=== PATIENT | male | born 1945 | race Caucasian/White ===

== ENCOUNTER 2018-04-06 17:48 | Inpatient (IN) | payer MEDICARE ==
[2018-04-06] MEDS ORDERED: Diabetic Tussin 200 MG/10 ML UDCUP PO PRN (21:51)
[2018-04-06] MEDS ORDERED: hydrALAZINE 25 MG TAB PO SCH (23:45)
[2018-04-06] MEDS ORDERED: Carvedilol 3.125 MG TAB PO SCH (23:45)
[2018-04-06] MEDS ORDERED: Amiodarone 200 MG TAB PO SCH (23:45)
[2018-04-06] MEDS ORDERED: Amoxicillin/Potassium Clav 875 MG TAB PO SCH (23:45)
[2018-04-06] MEDS ORDERED: Isosorbide Dinitrate 20 MG TAB PO SCH (23:45)
[2018-04-06] MEDS ORDERED: Atorvastatin Calcium 40 MG TAB PO SCH (23:45)
[2018-04-07] MEDS ORDERED: Amoxicillin/Potassium Clav 875 MG TAB ONE (00:51)
[2018-04-07 08:24] LABS: #Basophils 0.2 thou/uL (0.0-0.2); #Eosinphils 0.6 thou/uL (0.0-0.7); #Lymphocytes 2.1 thou/uL (1.20-3.40); #Neutrophils 7.2 thou/uL (1.40-6.50); %Basophils 1.4 % (0.0-1.0); %Eosinophils 5.3 % (0.0-10.0); %Lymphocytes 19.2 % (21.0-51.0); %Monocytes 8.8 % (0.0-10.0); %Neutrophils 65.3 % (42.0-75.0); Hemoglobin 9.8 g/dL (14.0-18.0); Mean Corpuscular HGB CONC 34.5 g/dL (32.0-36.0); Mean Corpuscular Hemoglobin 28.9 pg (27.0-31.0); Mean Corpuscular Volume 83.6 fl (80.0-94.0); Mean Platelet Volume 8.2 fL (7.4-10.4); Platelet Count 204 thou/uL (130-400); RBC Distribution Width 13.8 % (11.5-14.5)
[2018-04-07 08:44] LABS: Anion Gap 14 mmol/L (10-20); BUN (Urea Nitrogen) 18 mg/dL (8.4-25.7); Calc. Creatinine Clearance 84 mL/min (70-130); Calcium 8.1 mg/dL (7.8-10.44); Carbon Dioxide 22 mmol/L (23-31); Chloride 111 mmol/L (98-107); Estimated GFR-MDRD 58; Glucose 128 mg/dL (83-110); Sodium 143 mmol/L (136-145)
[2018-04-07] MEDS ORDERED: Vit A,C & E/Lutein/Minerals Tablet PO SCH ×2 (09:00)
[2018-04-07] MEDS: Amoxicillin/Potassium Clav 875 MG TAB PO SCH ×2 (09:11→21:12)
[2018-04-07] MEDS: Potassium Chloride 20 MEQ TAB PO SCH (09:14)
[2018-04-07] MEDS: metFORMIN 500 MG TAB PO SCH ×2 (09:15→19:14)
[2018-04-07] MEDS: Amiodarone 200 MG TAB PO SCH ×2 (09:17→21:11)
[2018-04-07] MEDS: Aspirin 325 mg Enteric Coated Tablet PO SCH (09:18)
[2018-04-07] MEDS: Carvedilol 3.125 MG TAB PO SCH ×3 (09:19→21:12)
[2018-04-07] MEDS: Clopidogrel Bisulfate 75 MG TAB PO SCH (09:21)
[2018-04-07] MEDS: hydrALAZINE 25 MG TAB PO SCH ×3 (09:23→21:12)
[2018-04-07] MEDS: Isosorbide Dinitrate 20 MG TAB PO SCH ×3 (09:27→21:19)
[2018-04-07] MEDS: Losartan Potassium 50 MG TAB PO SCH (09:34)
[2018-04-07] MEDS: Atorvastatin Calcium 40 MG TAB PO SCH (21:12)
[2018-04-07] MEDS: Latanoprost 0.005% Ophth Soln 2.5 ml Bottle L EYE SCH (21:23)
[2018-04-08] MEDS ORDERED: Vit A,C & E/Lutein/Minerals Tablet PO SCH (09:00)
[2018-04-08] MEDS: Potassium Chloride 20 MEQ TAB PO SCH (09:14)
[2018-04-08] MEDS: metFORMIN 500 MG TAB PO SCH ×2 (09:14→16:56)
[2018-04-08] MEDS: Amiodarone 200 MG TAB PO SCH ×2 (09:15→21:23)
[2018-04-08] MEDS: Clopidogrel Bisulfate 75 MG TAB PO SCH (09:15)
[2018-04-08] MEDS: Isosorbide Dinitrate 20 MG TAB PO SCH ×3 (09:16→21:23)
[2018-04-08] MEDS: Aspirin 325 mg Enteric Coated Tablet PO SCH (09:20)
[2018-04-08] MEDS: Amoxicillin/Potassium Clav 875 MG TAB PO SCH ×2 (09:21→21:21)
[2018-04-08] MEDS: Carvedilol 3.125 MG TAB PO SCH ×3 (09:21→21:23)
[2018-04-08] MEDS: hydrALAZINE 25 MG TAB PO SCH ×3 (09:22→21:22)
[2018-04-08] MEDS: Losartan Potassium 50 MG TAB PO SCH ×2 (09:24→09:26)
[2018-04-08] MEDS: Latanoprost 0.005% Ophth Soln 2.5 ml Bottle L EYE SCH (21:19)
[2018-04-08] MEDS: PRESERVISION AREDS 2 FORMULA PO SCH (21:20)
[2018-04-08] MEDS: Atorvastatin Calcium 40 MG TAB PO SCH (21:21)
--- NOTE | 2018-04-09 00:22 | HP ---
DATE OF ADMISSION: 04/06/2018 PRIMARY CARE PHYSICIAN: Dr. Carmen Gauthier and [facility] [place] CHIEF COMPLAINT: Extended stay at [facility] for skilled rehabilitation after outpatient hospital cardiac arrest. HISTORY OF PRESENT ILLNESS: Mr. Huerta is a 72-year-old male with coronary artery disease, diabetes mellitus, hypertension, and hyperlipidemia. He was playing in a casino on a cruise on to [place] when he collapsed. He underwent CPR for 15 minutes, received several cardiac shocks with intubation. He was successfully resuscitated. He was then transferred to [facility] and found to have an ST elevation myocardial infarction and pneumothorax. He underwent PCI to his left anterior descending artery and chest tube placement. He was then transferred to [facility] on 03/31/2018, he was intubated and sedated. Upon arrival, he was in atrial fibrillation with RVR, hypotensive, septic with acute renal failure. He also had some electrolyte derangements. He was subsequently started on amiodarone drip followed by digoxin drip. He was empirically treated with vancomycin and Zosyn for sepsis secondary to pneumonia. His echocardiogram showed EF of about 30%-35% with diastolic dysfunction, presence of mild to moderate mitral regurgitation and a sclerotic aortic valve with mild tricuspid regurgitation. Dr. Chadwick assisted with stabilizing his pulmonary status. He was given breathing treatments for his persistent cough after extubation likely secondary to underlying chronic obstructive pulmonary disease due to long history of smoking. Dr. Willson assisted with improving his cardiac status. His condition gradually improved and was stable for discharge to our facility. Prior to his transfer, he was placed on Zoll LifeVest. He was also started with physical therapy. He appeared very weak, fatigued with poor gait according to our records hence recommendations for continued rehab before returning home. The patient is a resident of [place] hence this admission. Today, he is complaining of poor appetite, shortness of breath with dry to semi productive cough, he is also complaining of pain on his right side, has bruising on his thighs and feet, possibly from thigh compression stockings that he was wearing at a [facility]. He would like to continue receiving breathing treatments. Per record , he walked about 500 plus feet today using his rolling walker. He is in good spirit. PAST MEDICAL HISTORY: 1. Out of hospital cardiac arrest secondary to ST elevation myocardial infarction. 2. History of atrial fibrillation with rapid ventricular response. 3. History of pneumothorax status post chest tube placement. 4. History of acute respiratory failure with underlying chronic obstructive pulmonary disease. 5. History of sepsis. 6. Hypertension. 7. Diabetes mellitus. 8. Hyperlipidemia. 9. Former smoker. PAST SURGICAL HISTORY: 1. Recent PCI with stent placement. 2. Chest tube placement. MEDICATIONS: 1. Amiodarone 400 mg b.i.d. 2. Augmentin 875 mg b.i.d. 3. Aspirin 325 mg daily. 4. Lipitor 40 mg at bedtime. 5. Coreg 3.125 mg b.i.d. 6. Plavix 75 mg daily. 7. Robitussin 100 mg every 4 hours p.r.n. for cough. 8. Hydralazine 25 mg t.i.d. 9. Metformin 500 mg b.i.d. 10. Potassium chloride 20 mEq daily. FAMILY HISTORY: Noncontributory. SOCIAL HISTORY: Former smoker, but admit that to smoke gain more than 30+ pack years. Denies alcohol or drug use. He is a former teacher in [employer]. REVIEW OF SYSTEMS: General: Positive for fatigue. Positive for decreased appetite. Positive for weakness. HEENT: Positive for bruising on right forehead secondary to recent fall. Positive for blurred vision. Positive for dry mouth. Negative for sore throat. Respiratory: Positive for dry to semi productive cough, positive for shortness of breath and positive for wheezing. Cardiovascular: Negative for chest pain. Negative for palpitation. Currently wearing a LifeVest. Abdomen: Positive for abdominal distention. Positive for constipation. Negative for abdominal pain. Musculoskeletal: Positive for right hip/buttock pain. Positive for bruising on both lower legs and feet. Positive for mild edema. Neurologic: Negative for seizures. Positive for memory loss. PHYSICAL EXAMINATION: VITAL SIGNS: Blood pressure of 115/57, temperature of 98.5, pulse of 62, respiratory rate of 22, O2 sat 95% on room air. GENERAL: The patient is alert, oriented x3, slightly in respiratory distress, slightly tachypneic. HEENT: Normocephalic. Positive for bruising on the right supraorbital area. Negative for tonsillopharyngeal congestion. NECK: Supple. Negative for lymphadenopathy. CHEST AND LUNGS: Positive for faint wheezing on both upper lung lopez, negative for crackles, negative for rales. Positive for use of accessory muscles. ABDOMEN: Distended, soft, normoactive bowel sounds. Negative for CVA tenderness. EXTREMITIES: Positive for grade 1 edema. Positive for bruising on proximal anterior legs and anterior feet. Negative for clubbing. NEUROLOGIC: Negative for motor or sensory deficits. PSYCHIATRIC: Appropriate affect and demeanor. LABORATORY AND X-RAY FINDINGS: 1. CBC: WBC of 11, hemoglobin of 9.8, hematocrit of 28.4, lymphocytes of 19.2 , neutrophils of 7.2. 2. BMP: Sodium of 143, potassium of 4, chloride of 111, carbon dioxide of 22, glucose of 128. ASSESSMENT: 1. Out of hospital cardiac arrest on LifeVest. 2. ST elevation myocardial infarction, status post percutaneous coronary intervention and stent placement on left anterior descending. 3. Atrial fibrillation with rapid ventricular response, resolved. 4. Pneumothorax status post chest tube placement, discontinued. 5. History of respiratory failure with underlying chronic obstructive pulmonary disease. 6. Physical deconditioning. 7. Hypertension complicated by hypotension, improved. 8. Acute kidney injury, resolved. 9. Diabetes mellitus. 10. Former smoker. 11. Hyperlipidemia. 12. Pneumonia with sepsis, improving. PLAN: 1. Admitted for [facility] with physical therapy. 2. Prognosis is fair due to his multiple comorbid conditions. 3. Continue oral antibiotics for treatment of pneumonia. 4. Continue LifeVest. 5. Continue physical therapy and occupational therapy. Goal is to improve mobility, endurance, gait, strength, and transfer ability, patient desires to go home. Continue current medication. Glucose monitoring q.a.c. and at bedtime. 6. Deep venous thrombosis prophylaxis with sequential compression devices. Restart nebulization for wheezing and persistent cough. 7. Serial monitoring of his hemoglobin secondary to nutritional anemia. 8. Case management to assist with discharge planning. DISPOSITION: Anticipated length of stay is about 2-4 weeks. Discharge to home with or without home health. Transfer of care to patient's PCP, Dr. Gauthier on Thursday. SUSHMA
[2018-04-09] MEDS: metFORMIN 500 MG TAB PO SCH ×2 (08:41→17:32)
[2018-04-09] MEDS: Potassium Chloride 20 MEQ TAB PO SCH (08:41)
[2018-04-09] MEDS: Amiodarone 200 MG TAB PO SCH ×2 (08:42→21:13)
[2018-04-09] MEDS: Isosorbide Dinitrate 20 MG TAB PO SCH ×3 (08:42→21:14)
[2018-04-09] MEDS: Amoxicillin/Potassium Clav 875 MG TAB PO SCH ×2 (08:43→21:15)
[2018-04-09] MEDS: hydrALAZINE 25 MG TAB PO SCH ×3 (08:43→21:07)
[2018-04-09] MEDS: Aspirin 325 mg Enteric Coated Tablet PO SCH (08:43)
[2018-04-09] MEDS: Carvedilol 3.125 MG TAB PO SCH ×3 (08:45→21:13)
[2018-04-09] MEDS: Clopidogrel Bisulfate 75 MG TAB PO SCH (08:45)
[2018-04-09] MEDS: PRESERVISION AREDS 2 FORMULA PO SCH ×2 (08:46→21:15)
[2018-04-09] MEDS ORDERED: Amoxicillin/Potassium Clav 875 MG TAB ONE (09:46)
[2018-04-09] MEDS: Atorvastatin Calcium 40 MG TAB PO SCH (21:13)
[2018-04-09] MEDS: Latanoprost 0.005% Ophth Soln 2.5 ml Bottle L EYE SCH (21:14)
[2018-04-10] MEDS: Carvedilol 3.125 MG TAB PO SCH ×3 (08:34→21:56)
[2018-04-10] MEDS: metFORMIN 500 MG TAB PO SCH ×2 (08:34→17:13)
[2018-04-10] MEDS: Isosorbide Dinitrate 20 MG TAB PO SCH ×3 (08:35→21:49)
[2018-04-10] MEDS: Aspirin 325 mg Enteric Coated Tablet PO SCH (08:35)
[2018-04-10] MEDS: Amiodarone 200 MG TAB PO SCH ×2 (08:35→21:50)
[2018-04-10] MEDS: Potassium Chloride 20 MEQ TAB PO SCH (08:37)
[2018-04-10] MEDS: hydrALAZINE 25 MG TAB PO SCH ×3 (08:37→21:52)
[2018-04-10] MEDS: Clopidogrel Bisulfate 75 MG TAB PO SCH (08:37)
[2018-04-10] MEDS: Amoxicillin/Potassium Clav 875 MG TAB PO SCH ×2 (08:38→21:49)
[2018-04-10] MEDS: PRESERVISION AREDS 2 FORMULA PO SCH ×2 (08:39→22:01)
[2018-04-10] MEDS: Atorvastatin Calcium 40 MG TAB PO SCH (21:50)
[2018-04-10] MEDS: Latanoprost 0.005% Ophth Soln 2.5 ml Bottle L EYE SCH (21:58)
[2018-04-10] MEDS: diphenhydrAMINE 25 MG CAP PO PRN (22:32)
[2018-04-11] MEDS: metFORMIN 500 MG TAB PO SCH ×2 (09:23→17:29)
[2018-04-11] MEDS: Clopidogrel Bisulfate 75 MG TAB PO SCH (09:24)
[2018-04-11] MEDS: Potassium Chloride 20 MEQ TAB PO SCH (09:24)
[2018-04-11] MEDS: Amiodarone 200 MG TAB PO SCH ×2 (09:24→20:46)
[2018-04-11] MEDS: Aspirin 325 mg Enteric Coated Tablet PO SCH (09:24)
[2018-04-11] MEDS: hydrALAZINE 25 MG TAB PO SCH ×3 (09:24→20:47)
[2018-04-11] MEDS: Carvedilol 3.125 MG TAB PO SCH ×3 (09:26→20:48)
[2018-04-11] MEDS: Isosorbide Dinitrate 20 MG TAB PO SCH ×3 (09:26→20:46)
[2018-04-11] MEDS: Amoxicillin/Potassium Clav 875 MG TAB PO SCH ×2 (09:29→20:49)
[2018-04-11] MEDS: PRESERVISION AREDS 2 FORMULA PO SCH ×2 (09:30→20:42)
[2018-04-11 11:18] VITALS: BMI 31.4
[2018-04-11] MEDS: Latanoprost 0.005% Ophth Soln 2.5 ml Bottle L EYE SCH (20:44)
[2018-04-11] MEDS: Atorvastatin Calcium 40 MG TAB PO SCH (20:45)
[2018-04-11] MEDS: diphenhydrAMINE 25 MG CAP PO PRN (21:59)
[2018-04-12 05:39] LABS: White Blood Cell (WBC) Count 7.3 thou/uL (4.8-10.8)
[2018-04-12 05:40] LABS: %Lymphocytes 29.9 % (21.0-51.0); %Neutrophils 47.4 % (42.0-75.0); Hemoglobin 9.4 g/dL (14.0-18.0); Mean Corpuscular HGB CONC 35.1 g/dL (32.0-36.0); Mean Corpuscular Hemoglobin 29.1 pg (27.0-31.0); Mean Corpuscular Volume 82.9 fL (80.0-94.0); Mean Platelet Volume 8.8 fL (7.4-10.4); Platelet Count 176 thou/uL (130-400); RBC Distribution Width 14.8 % (11.5-14.5); Red Blood Cell (RBC) Count 3.24 mill/uL (4.70-6.10)
[2018-04-12 05:41] LABS: #Basophils 0.1 thou/uL (0.0-0.2); #Eosinphils 0.8 thou/uL (0.0-0.7); #Lymphocytes 2.2 thou/uL (1.20-3.40); #Monocytes 0.7 thou/uL (0.11-0.59); #Neutrophils 3.5 thou/uL (1.40-6.50); %Basophils 1.2 % (0.0-1.0); %Eosinophils 11.6 % (0.0-10.0); %Monocytes 9.9 % (0.0-10.0)
[2018-04-12 05:44] LABS: Anion Gap 14 mmol/L (10-20); BUN (Urea Nitrogen) 14 mg/dL (8.4-25.7); Calc. Creatinine Clearance 88 mL/min (70-130); Carbon Dioxide 20 mmol/L (23-31); Chloride 110 mmol/L (98-107); Estimated GFR-MDRD 63; Glucose 103 mg/dL (83-110); Potassium 3.7 mmol/L (3.5-5.1); Sodium 140 mmol/L (136-145)
[2018-04-12] MEDS: Amiodarone 200 MG TAB PO SCH ×2 (09:23→21:24)
[2018-04-12] MEDS: hydrALAZINE 25 MG TAB PO SCH ×3 (09:23→21:26)
[2018-04-12] MEDS: metFORMIN 500 MG TAB PO SCH ×2 (09:23→17:28)
[2018-04-12] MEDS: Potassium Chloride 20 MEQ TAB PO SCH (09:23)
[2018-04-12] MEDS: Aspirin 325 mg Enteric Coated Tablet PO SCH (09:23)
[2018-04-12] MEDS: Isosorbide Dinitrate 20 MG TAB PO SCH ×3 (09:24→21:25)
[2018-04-12] MEDS: Carvedilol 3.125 MG TAB PO SCH ×3 (09:24→21:23)
[2018-04-12] MEDS: Clopidogrel Bisulfate 75 MG TAB PO SCH (09:24)
[2018-04-12] MEDS: PRESERVISION AREDS 2 FORMULA PO SCH ×2 (09:33→21:32)
[2018-04-12] MEDS: Amoxicillin/Potassium Clav 875 MG TAB PO SCH ×2 (10:58→21:31)
[2018-04-12] MEDS: Atorvastatin Calcium 40 MG TAB PO SCH (21:24)
[2018-04-12] MEDS: Latanoprost 0.005% Ophth Soln 2.5 ml Bottle L EYE SCH (21:31)
[2018-04-12] MEDS: diphenhydrAMINE 25 MG CAP PO PRN (22:28)
[2018-04-13] MEDS: metFORMIN 500 MG TAB PO SCH ×2 (09:20→17:08)
[2018-04-13] MEDS: Isosorbide Dinitrate 20 MG TAB PO SCH ×2 (09:20→14:47)
[2018-04-13] MEDS: hydrALAZINE 25 MG TAB PO SCH ×2 (09:21→14:47)
[2018-04-13] MEDS: Aspirin 325 mg Enteric Coated Tablet PO SCH (09:22)
[2018-04-13] MEDS: Carvedilol 3.125 MG TAB PO SCH ×2 (09:22→14:48)
[2018-04-13] MEDS: Clopidogrel Bisulfate 75 MG TAB PO SCH (09:22)
[2018-04-13] MEDS: Potassium Chloride 20 MEQ TAB PO SCH (09:22)
[2018-04-13] MEDS: Amiodarone 200 MG TAB PO SCH (09:22)
[2018-04-13] MEDS: Amoxicillin/Potassium Clav 875 MG TAB PO SCH (09:23)
[2018-04-13] MEDS: PRESERVISION AREDS 2 FORMULA PO SCH (10:53)
[2018-04-13 18:52] VITALS: BP 106/56; TEMP 98.5
== END 2018-04-13 19:15 | disposition home or self-care (01) | DRG 947 ==
LOC: BURMED 19:21
PROVIDERS: ADMIT Family Medicine; ATTEND Family Medicine
DX: R53.1 Weakness (principal); I21.3 ST elevation (STEMI) myocardial infarction of unspecified site; J18.9 Pneumonia, unspecified organism; I48.91 Unspecified atrial fibrillation; J44.9 Chronic obstructive pulmonary disease, unspecified; I10 Essential (primary) hypertension; I25.10 Atherosclerotic heart disease of native coronary artery without angina pectoris; E11.9 Type 2 diabetes mellitus without complications; E78.5 Hyperlipidemia, unspecified; D53.9 Nutritional anemia, unspecified; R53.83 Other fatigue; R06.02 Shortness of breath; R06.2 Wheezing; K59.00 Constipation, unspecified; R26.9 Unspecified abnormalities of gait and mobility; Z86.74 Personal history of sudden cardiac arrest; Z87.891 Personal history of nicotine dependence; Z95.5 Presence of coronary angioplasty implant and graft; Z79.84 Long term (current) use of oral hypoglycemic drugs; Z79.02 Long term (current) use of antithrombotics/antiplatelets; Z79.82 Long term (current) use of aspirin; Z79.899 Other long term (current) drug therapy
CPT/HCPCS: 36415; 36416; 80048; 84134; 85025; G8978-GP-CK; G8979-GP-CI; G8987-GO-CK; G8988-GO-CI; J7620

== ENCOUNTER 2019-07-29 20:19 | Emergency (ER) | payer MEDICARE ==
[2019-07-29 20:46] LABS: #Basophils 0.2 thou/uL (0.0-0.2); #Eosinphils 0.3 thou/uL (0.0-0.7); #Lymphocytes 3.8 thou/uL (1.20-3.40); #Neutrophils 7.5 thou/uL (1.40-6.50); %Basophils 1.4 % (0.0-1.0); %Eosinophils 2.5 % (0.0-10.0); %Lymphocytes 29.9 % (21.0-51.0); %Monocytes 7.4 % (0.0-10.0); %Neutrophils 58.7 % (42.0-75.0); Hemoglobin 10.9 g/dL (14.0-18.0); Mean Corpuscular HGB CONC 32.5 g/dL (32.0-36.0); Mean Corpuscular Hemoglobin 29.1 pg (27.0-31.0); Mean Corpuscular Volume 89.5 fL (78.0-98.0); Mean Platelet Volume 8.4 fL (7.4-10.4); Platelet Count 196 thou/uL (130-400); RBC Distribution Width 13.9 % (11.5-14.5); Red Blood Cell (RBC) Count 3.73 mill/uL (4.70-6.10); White Blood Cell (WBC) Count 12.7 thou/uL (4.8-10.8)
[2019-07-29 21:04] LABS: ALT (SGPT) 19 U/L (8-55); AST (SGOT) 13 U/L (5-34); Albumin 3.6 g/dL (3.4-4.8); Alkaline Phosphatase 68 U/L (40-110); Anion Gap 20 mmol/L (10-20); BUN (Urea Nitrogen) 69 mg/dL (8.4-25.7); Bilirubin, Total 0.4 mg/dL (0.2-1.2); Calc. Creatinine Clearance 0 mL/min (70-130); Calcium 8.7 mg/dL (7.8-10.44); Carbon Dioxide 19 mmol/L (23-31); Chloride 108 mmol/L (98-107); Estimated GFR-MDRD 45; Globulin 2.5 g/dL (2.4-3.5); Glucose 260 mg/dL (83-110); Lipase 36 U/L (8-78); Potassium 5.1 mmol/L (3.5-5.1); Protein, Total 6.1 g/dL (5.8-8.1); Sodium 142 mmol/L (136-145)
--- NOTE | 2019-07-29 21:16 | RAD ---
PORTABLE CHEST: 07/29/19 An AP portable film at 2053 is compared with a 04/01/18 study. Mild cardiomegaly is no worse than previously. There is no vascular congestion, edema, or pleural eff usion. The lungs are clear. A cardiac pacer has been placed since the prior examination. IMPRESSION: Mild cardiomegaly but no acute findings. POS: HOME
[2019-07-29 22:06] LABS: Bilirubin Negative (Negative); Blood, Urine Negative (Negative); Clarity Clear (Clear); Glucose, Urine (Dipstick) Negative (Negative); Leukocyte Trace (Negative); Nitrite Negative (Negative); Protein, Urine (Dipstick) Negative (Neg-Trace); Urobilinogen 0.2 mg/dL (Less than 2)
[2019-07-29 22:10] LABS: RBC/HPF 0-3 HPF (0-3); Squamous Epithelial 0-3 HPF (0-3)
[2019-07-29 22:11] LABS: Bacteria/HPF Rare-Few HPF (None Seen)
[2019-07-29 22:13] LABS: Red Blood Cell Cast 0-3 LPF (None Seen)
[2019-07-29] MEDS ORDERED: cefTRIAXone\\ROCEPHIN 1 GM VIAL ONE (22:18)
== END 2019-07-29 22:57 | disposition short-term general hospital (02) ==
LOC: BURERS 20:19
DX: E86.0 Dehydration (principal); R53.1 Weakness; R55 Syncope and collapse; I25.2 Old myocardial infarction; E11.9 Type 2 diabetes mellitus without complications; I10 Essential (primary) hypertension; Z79.84 Long term (current) use of oral hypoglycemic drugs; Z79.82 Long term (current) use of aspirin; Z79.899 Other long term (current) drug therapy
CPT/HCPCS: 36415; 71045; 80053; 81003; 81015; 83605; 83690; 83880; 84484; 85025; 85379; 87040; 87086; 93005; 96361; 96374; J0696

== ENCOUNTER 2019-09-28 09:48 | Outpatient (CLI) | payer MEDICARE ==
--- NOTE | 2019-09-28 18:36 | RAD ---
ABDOMEN 09/28/19 Supine and erect films show no free air beneath the diaphragm. Large air fluid level is seen in the u pper abdomen that I am presuming to be in stomach, though it is a little more midline than usual. The colon does not appear dilated and there is a moderate amount of fecal material present. A collection of calcifications is suggested in the right upper quadrant and are presumably gallstones. An old fr acture of the right 9th rib is suggested. The lung bases are clear. IMPRESSION: 1. No opaque foreign body seen. 2. Prominent air fluid level in the stomach. 3. Right upper quadrant calcifications, presumably multiple tiny gallstones. 4. Mild constipation. 5. Not mentioned above but potentially present are some left upper quadrant calcifications of un certain etiology. They could be in the pancreas or in blood vessels. POS: HOME
== END 2019-09-28 09:49 | disposition home or self-care (01) ==
LOC: BURRAD 09:48
PROVIDERS: ATTEND Internal Medicine
DX: T18.2XXA Foreign body in stomach, initial encounter (principal); K59.00 Constipation, unspecified; R93.5 Abnormal findings on diagnostic imaging of other abdominal regions, including retroperitoneum
CPT/HCPCS: 74019

== ENCOUNTER 2020-06-01 16:15 | Emergency (ER) | payer MEDICARE | END 2020-06-01 16:34 | disposition home or self-care (01) | LOC: BURERS 16:15 | DX: M79.645 Pain in left finger(s) (principal); I25.2 Old myocardial infarction; E11.9 Type 2 diabetes mellitus without complications; Z87.891 Personal history of nicotine dependence; I10 Essential (primary) hypertension; Z79.899 Other long term (current) drug therapy; Z79.84 Long term (current) use of oral hypoglycemic drugs; Z79.82 Long term (current) use of aspirin | CPT/HCPCS: 99283 ==

== ENCOUNTER 2022-02-25 09:30 | Emergency (ER) | payer MEDICARE ==
[2022-02-25] MEDS ORDERED: Iopamidol 370 76% 100 ML VIAL FS ONE (09:31)
[2022-02-25 10:15] LABS: #Basophils 0.1 thou/uL (0.0-0.2); #Eosinphils 0.2 thou/uL (0.0-0.7); #Lymphocytes 2.1 thou/uL (1.20-3.40); #Monocytes 0.5 thou/uL (0.11-0.59); #Neutrophils 5.9 thou/uL (1.40-6.50); %Basophils 0.8 % (0.0-1.0); %Eosinophils 2.6 % (0.0-10.0); %Lymphocytes 23.6 % (21.0-51.0); %Monocytes 5.3 % (0.0-10.0); %Neutrophils 67.8 % (42.0-75.0); Hemoglobin 15.1 g/dL (14.0-18.0); Mean Corpuscular HGB CONC 31.4 g/dL (32.0-36.0); Mean Corpuscular Hemoglobin 28.6 pg (27.0-31.0); Mean Corpuscular Volume 91.2 fL (78.0-98.0); Mean Platelet Volume 8.9 fL (7.4-10.4); Platelet Count 109 thou/uL (130-400); RBC Distribution Width 15.1 % (11.5-14.5); Red Blood Cell (RBC) Count 5.27 mill/uL (4.70-6.10); White Blood Cell (WBC) Count 8.7 thou/uL (4.8-10.8)
[2022-02-25 10:33] LABS: ALT (SGPT) 21 U/L (8-55); AST (SGOT) 17 U/L (5-34); Albumin 3.7 g/dL (3.4-4.8); Alkaline Phosphatase 91 U/L (40-110); Anion Gap 16 mmol/L (10-20); Anisocytosis SLIGHT = 6-15 cells (100X) (0-5/hpf); BUN (Urea Nitrogen) 26 mg/dL (8.4-25.7); Bilirubin, Total 0.8 mg/dL (0.2-1.2); Calc. Creatinine Clearance 0 mL/min (70-130); Calcium 8.5 mg/dL (7.8-10.44); Carbon Dioxide 22 mmol/L (23-31); Chloride 112 mmol/L (98-107); Glucose 197 mg/dL (83-110); MDiff Complete? YES; Platelet Morphology Comment Appears Decreased; Potassium 4.5 mmol/L (3.5-5.1); Protein, Total 6.7 g/dL (5.8-8.1); Sodium 145 mmol/L (136-145)
[2022-02-25 10:45] LABS: INR-International Normal Ratio 1.2; Prothrombin Time 14.9 sec (12.0-14.7)
[2022-02-25 10:46] LABS: PTT 32.6 sec (22.9-36.1)
[2022-02-25] MEDS ORDERED: Aspirin 325 MG TAB ONE (11:13)
[2022-02-25 11:36] LABS: Bilirubin Negative (Negative); Blood, Urine Negative (Negative); Clarity Clear (Clear); Glucose, Urine (Dipstick) 100 mg/dL (Negative); Ketone, Urine 15 mg/dL (Negative); Leukocyte Negative (Negative); Nitrite Negative (Negative); Protein, Urine (Dipstick) Negative (Neg-Trace); Urobilinogen 0.2 mg/dL (Less than 2)
[2022-02-25 23:00] LABS: SARS-CoV-2 PCR by NAA Not Detected (NotDetected)
== END 2022-02-25 13:32 | disposition short-term general hospital (02) ==
LOC: BURERS 09:30
DX: I63.9 Cerebral infarction, unspecified (principal); R11.10 Vomiting, unspecified; Z20.822 Contact with and (suspected) exposure to COVID-19; I10 Essential (primary) hypertension; I25.2 Old myocardial infarction; E11.9 Type 2 diabetes mellitus without complications; Z87.891 Personal history of nicotine dependence
CPT/HCPCS: 70450; 70496; 70498; 80053; 81003; 85025; 85610; 85730; 93005; U0003; U0005; 36415; Q9967